=== PATIENT | female | born 1965 | race Caucasian/White ===

== ENCOUNTER 2016-12-20 17:58 | Emergency (ER) | payer SELFPAY ==
--- NOTE | ~2016-12-20 | CR63 ---
[facility] A Service of [facility] RADIOLOGY TEXT RESULTS PATIENT: MOO ZAMBRANO LOCATION: [facility] : [birth year] UNIT #: [id number] AGE: [address]: JENNIFER BEAL SEX: F ORDER DR: [id number] [facility] [address] [place], [place] [address] [id number] MR#: [id number] Acc #: [id number] NAME: MOO ZAMBRANO. : 1965 SEX: F STUDY DATE/TIME: 12/20/2016 17:23 UNIT: [facility] ROOM: STUDY DESCRIPTION: CR Chest 2 View Attending Physician: Jennifer Beal Aprn Ordering Physician: Ed Doctor [id number] [facility] Primary Care Physician: Primary Care Physician No MEDICAL IMAGING REPORT This report is preliminary unless electronic signature is present EXAM 2 views chest, 12/20/2016 HISTORY Cough, congestion, fever, short of air, weakness began . FINDINGS PA and lateral radiographs of the chest are presented. Comparison is 10/12/2015. No acute bony abnormality. Heart and mediastinum normal in size and contour. The lungs are hyperinflated. Correlate with any known underlying chronic airway disease. There is no indication of acute infectious or inflammatory disease, pleural effusion or pneumothorax. No suspicious nodule. Dictated by... Lanre Hebert M.D. THIS IS AN ELECTRONICALLY VERIFIED REPORT Lanre Hebert M.D. at 12/22/2016 4:25 PM Dain TD: 12/21/2016 10:16 JOB #: [id number] MEDICAL IMAGING REPORT COPY
[2016-12-20 17:38] LABS: INFLUENZA A NEG (NEG); INFLUENZA B NEG (NEG)
[~2016-12-20 17:58] MED LIST: ATARAX PO; PREDNISONE PO
== END 2016-12-20 18:23 | disposition home or self-care (01) ==
LOC: CFTX 17:58
PROVIDERS: Nurse Practitioner Family
DX: J02.9 Acute pharyngitis, unspecified (principal); J04.0 Acute laryngitis; Z90.710 Acquired absence of both cervix and uterus; Z90.49 Acquired absence of other specified parts of digestive tract; F17.210 Nicotine dependence, cigarettes, uncomplicated
CPT/HCPCS: 71020; 87804; 94640; 99283